=== PATIENT | female | born 1940 | race Caucasian/White ===

== ENCOUNTER → 2021-10-24 13:26 | Outpatient (CLI) | payer MEDICARE, SELFPAY ==
--- NOTE | 2021-10-24 13:38 | MR_ITS ---
FINAL REPORT CLINICAL HISTORY: neck pain, brisk reflexes. MEMORY LOSS XYEARS. HISTORY STROKE IN 2009. DIZZINESS. NECK PAIN WORSE ON RIGHT SIDE. PATIENT HAD A HARD TIME STAYING STILL. SENT OVER BEST IMAGES. FINDINGS: Multiplanar MR imaging of the cervical spine was performed without contrast. On the sagittal T2-weighted images, disc degeneration is seen throughout. There is no evidence of fracture. There is mild anterolisthesis of C3 on C4 and mild retrolisthesis of C5 on C6. There is mild kyphosis centered at C5. The cervical spinal cord has an unremarkable appearance without evidence of mass, edema or syrinx. No significant canal stenosis is identified. The cervicomedullary junction is normal. C2-3: There is a small central disc protrusion. C3-4: There is a small central disc protrusion. Bilateral uncovertebral osteophytes are present. There is moderate right neural foraminal narrowing. C4-5: A disc osteophyte complex is present. There is moderate right neural foraminal narrowing. C5-6: A disc osteophyte complex is present. There is severe bilateral neural foraminal narrowing. C6-7: A disc osteophyte complex is present. There is moderate right and mild left neural foraminal narrowing. C7-T1: An annular bulge is present. IMPRESSION: Multilevel degenerative disc disease and spondylosis with areas of neural foraminal narrowing which is worse at C5-6. Central disc protrusion at C2-3 and C3-4 levels. Malalignment as described above. Reviewed, Interpreted and Dictated by Harsh Fan III, MD Transcribed by Esthela Duong Authenticated and [facility]
--- NOTE | 2021-10-24 13:38 | MR_ITS ---
FINAL REPORT CLINICAL HISTORY: memory loss, syncope, history of CVA. MEMORY LOSS XYEARS. HISTORY STROKE IN 2009. DIZZINESS. NECK PAIN WORSE ON RIGHT SIDE. FINDINGS: Multiplanar MR imaging of the brain was performed without contrast. There is age-appropriate atrophy. There are scattered foci of increased T2 signal in the cerebral white matter that have a nonspecific appearance but likely represent severe chronic ischemic/gliotic changes. There is a chronic lacunar infarct in the left basal ganglia. There is no evidence of intracranial hemorrhage or mass. No abnormal ventricular dilatation is identified. No abnormal extra-axial fluid collection is seen. No abnormality is seen on the diffusion weighted images. The posterior fossa and brainstem are unremarkable. Normal major vessel vascular flow voids are seen. IMPRESSION: Age-appropriate atrophy and severe chronic ischemic/gliotic changes. No acute intracranial abnormality. Reviewed, Interpreted and Dictated by Harsh Fan III, MD Transcribed by Noreen Lua Authenticated and [facility]
--- NOTE | 2021-10-24 15:45 | XR_ITS ---
FINAL REPORT CLINICAL HISTORY: neck pain, brisk reflexes FINDINGS: CERVICAL SPINE Seven views were obtained including flexion extension. There is no acute fracture. There is mild anterolisthesis of C3 on C4. There is mild retrolisthesis of C5 on C6. There is moderate severe degenerative change. There is no abnormal movement with flexion and extension. There is moderate right C5-6 and mild left C4-5 and C5-6 neural foraminal narrowing. Note is made of vascular calcification. IMPRESSION: Degenerative changes with areas of neural foraminal narrowing. Reviewed, Interpreted and Dictated by Harsh Fan III, MD Transcribed by Noreen Lua Authenticated and [facility]
== END ==
PROVIDERS: PCP Nurse Practitioner Family; Visit Provider Nurse Practitioner Family
DX: M54.2 Cervicalgia (principal); R29.2 Abnormal reflex; R41.3 Other amnesia; R41.844 Frontal lobe and executive function deficit; R55 Syncope and collapse; Z86.73 Personal history of transient ischemic attack (TIA), and cerebral infarction without residual deficits
CPT/HCPCS: 70551; 72052; 72141; 76376; 94762

== ENCOUNTER 2022-05-29 14:23 | Emergency (ER) | payer MEDICARE, SELFPAY ==
[2022-05-29] VITALS (8 sets, daily range): BP systolic 151–180; BP diastolic 77–112; PULSE 74–120; RESP 17–22; TEMP 36.6–36.7; O2SAT 94–98; BMI 25.9
--- NOTE | 2022-05-29 14:33 | CT_ITS ---
FINAL REPORT TECHNIQUE: Axial images were performed through the brain.This study was performed with techniques to keep radiation doses as low as reasonably achievable, (ALARA). Individualized dose reduction techniques using automated exposure control or adjustment of mA and/or kV according to the patient''s size were employed. CLINICAL HISTORY: [facility] stroke protocol FINDINGS: There are multiple chronic lacunar infarcts in the basal ganglia. There is an old left occipital and frontal parietal cortical infarct. There are advanced chronic microvascular changes and moderate generalized atrophy. The ventricles are normal in size for the degree of atrophy. There is no extra-axial fluid or midline shift. There is no evidence of acute hemorrhage or mass. IMPRESSION: No hemorrhage or obvious acute abnormality, however given the extensive chronic changes, MR follow-up is recommended. Reviewed, Interpreted and Dictated by Alfonso Sherwood MD Transcribed by Ana María Garcia Authenticated and [facility]
--- NOTE | 2022-05-29 14:39 | CT_ITS ---
FINAL REPORT TECHNIQUE: Multiple axial CT angiography images were performed from the foramen magnum to the vertex before and during IV contrast administration. This study was performed with techniques to keep radiation doses as low as reasonably achievable (ALARA). Individualized dose reduction techniques using automated exposure control or adjustment of mA and/or kV according to the patient's size were employed. CLINICAL HISTORY: stroke COMPARISON: none FINDINGS: CTA HEAD Thin section axial CT with contrast with multiplanar reconstruction The distal ICAs, central MCAs, and central ACAs are widely patent. The basilar artery is widely patent. There is occlusion of the proximal left [employer] which correlates with chronic left occipital infarct. 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 The distal right vertebral artery is widely patent. IMPRESSION: Anterior circulation is intact. 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 Reviewed, Interpreted and Dictated by Alfonso Sherwood MD Transcribed by Noreen Lau Authenticated and [facility]
--- NOTE | 2022-05-29 14:39 | CT_ITS ---
FINAL REPORT TECHNIQUE: Thin section axial images were obtained through the neck after contrast administration per CT angiogram protocol. Multiplanar reconstruction images were obtained from the axial data. Exam was performed using dose reduction technique. CLINICAL HISTORY: stroke COMPARISON: none FINDINGS: CTA NECK Thin section axial CT with contrast with multiplanar reconstruction NASCET criteria and technique was utilized during interpretation. Aortic arch: Arch shows no significant narrowing. Great vessel origins are widely patent . Right carotid: There is 50% proximal right ICA stenosis. Left carotid: There is mild plaque disease without measurable stenosis. Vertebrals: Right vertebral artery is dominant. Proximal left vertebral artery is patent although occluded distally. IMPRESSION: 50% stenosis proximal right ICA. Reviewed, Interpreted and Dictated by Alfonso Sherwood MD Transcribed by Noreen Lua Authenticated and [facility]
--- NOTE | 2022-05-29 14:46 | HMH.EDGENADL ---
Discharge Plan Disposition Patient Disposition: Xfer Other Chief Complaint: Neuro Symptoms/Deficit Prescriptions Prescriptions: No Action amlodipine 10 mg tablet 10 mg PO DAILY levothyroxine 50 mcg tablet 50 mcg PO DAILY donepezil 10 mg tablet 10 mg PO DAILY omeprazole 20 mg capsule,delayed release(DR/EC) 20 mg PO DAILY pravastatin 20 mg tablet 20 mg PO DAILY enalapril maleate 10 mg tablet 10 mg PO DAILY aspirin [Adult Aspirin Regimen] 81 mg tablet,delayed release (DR/EC) 81 mg PO DAILY calcium carbonate [Calcium 600] 600 mg calcium (1,500 mg) tablet 600 mg PO DAILY vitamin E (dl, acetate) 180 mg (400 unit) capsule 180 mg PO DAILY Referrals Follow up/Referrals: Daksha Guerin APRN [Primary Care Provider] - See instructions Clinical Impressions Clinical Impression: Transient cerebral ischemia Discharge ED Provider: Guevara Angel General Adult HPI General Chief complaint: Neuro Symptoms/Deficit Stated complaint: sent by Apoorva Time Seen by Provider: 05/29/22 14:47 Source of Information: Spouse and Relative History of Present Illness HPI narrative: 81-year-old female history of high blood pressure CVA hypothyroid presents with altered mental status. She has history of dementia. She apparently was at class [facility] the [facility] and then had altered mental status where she kept repeating I do not know, I do not know. When her daughter saw her at around 2:30 PM she had weakness in her right hand and a left facial droop however per her daughter this has resolved. Her symptoms started around 11:30 AM. Confusion is intermittant and resolving. She is on aspirin only for anticoagulation. No recent strokes or head bleeds. Related Data Home Medications Medication Instructions Recorded Confirmed amlodipine 10 mg tablet 10 mg PO DAILY 10/07/21 11/28/21 aspirin 81 mg tablet,delayed 81 mg PO DAILY 10/07/21 11/28/21 release (Adult Aspirin Regimen) calcium carbonate 600 mg calcium 600 mg PO DAILY 10/07/21 11/28/21 (1,500 mg) tablet (Calcium) donepezil 10 mg tablet 10 mg PO DAILY 10/07/21 11/28/21 enalapril maleate 10 mg tablet 10 mg PO DAILY 10/07/21 11/28/21 levothyroxine 50 mcg tablet 50 mcg PO DAILY 10/07/21 11/28/21 omeprazole 20 mg capsule,delayed 20 mg PO DAILY 10/07/21 11/28/21 release pravastatin 20 mg tablet 20 mg PO DAILY 10/07/21 11/28/21 vitamin E (dl, acetate) 180 mg 180 mg PO DAILY 10/07/21 11/28/21 (400 unit) capsule Allergies Allergy/AdvReac Type Severity Reaction Status Date / Time No Known Allergies Allergy Verified 11/28/21 09:25 [facility] Disclaimer: The information contained in this section may have been updated after the patient was seen, as this information can be updated by other users. Social History Smoking Status: Unknown if ever smoked alcohol intake: never current occupational status: disabled Travel in the last 8 weeks: None ROS Obtained: Yes All systems reviewed & no additional complaints except as documented Constitutional Constitutional: Denies fatigue, Denies fever(s) and Denies headache(s) Eyes Eyes: Denies irritation and Denies itchy eyes ENT Ears, Nose, Mouth, and Throat: Denies headache(s) Cardiovascular Cardiovascular: Denies dyspnea Respiratory Respiratory: Denies cough and Denies dyspnea Gastrointestinal Gastrointestingal: Denies melena Genitourinary Female Genitourinary: Denies hematuria Musculoskeletal Musculoskeletal: Denies joint swelling Integumentary/Breasts Skin/Breast: Denies pruritus and Denies rash Neurologic Neurologic: Denies headache(s) Endocrine Endocrine: Denies fatigue Allergic/Immunologic Allergic/Immunologic: Denies itchy eyes Physical Exam General General appearance: alert and in no apparent distress Eye Eye exam: Present PERRL and EOMI ENT ENT exam: Present normal exam and normal oropharynx Neck Neck exam: Present normal inspection Chest Ch
[2022-05-29 14:52] LABS: Chloride 103 mmol/L (98-107); Potassium 3.9 mmoL/L (3.5-5.1); Sodium 137 mmol/L (136-145)
[2022-05-29 14:55] LABS: Alanine Aminotransferase 21 U/L (12-78); Albumin Level 4.8 g/dl (3.5-5.0); Albumin/Globulin Ratio 1.7 (1.1-1.8); Alkaline Phosphatase 57 U/L (38-126); Anion Gap 13.9 mEq/L (5-15); Aspartate Amino Transferase 30 U/L (14-36); Bilirubin,Total 0.8 mg/dl (0.2-1.3); Blood Urea Nitrogen 15 mg/dl (7-17); Calcium 9.7 mg/dl (8.4-10.2); Carbon Dioxide 24 mmol/L (22.0-30.0); Creatinine Clearance Estimated 50 mL/min (50-200); Estimated Glomerular Filt Rate 60 ml/min (>60); GFR (African American) 73 ML/MIN (>60); Globulin 2.9 g/dL (1.3-3.2); Glucose 137 mg/dl (74-100); Magnesium 2.1 mg/dl (1.6-2.3); Total Protein,Serum 7.7 g/dl (6.3-8.2)
[2022-05-29 14:58] LABS: Basophils # 0.1 K/mm3 (0-0.2); Eosinophils # 0.1 K/mm3 (0.0-0.4); Eosinophils % 1.5 % (0.1-12.0); Hematocrit 46.2 % (37.0-47.0); Hemoglobin 15.5 g/dL (12.2-16.2); Lymphocytes # 2.2 K/mm3 (0.7-4.5); Mean Corpuscular HGB Conc 33.6 g/dL (31.8-35.4); Mean Corpuscular Hemoglobin 30.9 pg (27.0-31.2); Mean Corpuscular Volume 91.9 fl (81-99); Mean Platelet Volume 8.9 fl (7.4-10.4); Monocytes # 0.5 K/mm3 (0.1-1.0); Monocytes % 5.9 % (1.7-9.3); Neutrophils # 5.1 K/mm3 (1.8-7.8); Neutrophils % 63.7 % (37.0-80.0); Platelet Count 312 K/mm3 (142-424); Red Blood Count 5.02 M/mm3 (4.20-5.40); Red Cell Distribution Width 14.1 % (11.5-17.5)
[2022-05-29 15:21] LABS: Troponin I < 0.01 ng/ml (0.00-0.034)
--- NOTE | 2022-05-29 15:22 | PC.NURSE ---
pt more alert and reactive to staff when talking to her. Pt able to follow some commands when doing in/out cath. attempted to do NIH assessment again on pt at this time, pt no cooperative with directions. ER aware
[2022-05-29 15:25] LABS: Microscopic, Urine URINE MICROSCOPIC (MICROSCOPIC)
[2022-05-29 15:26] LABS: Thyroid Stimulating Hormone 1.78 uIU/mL (0.465-4.68)
[2022-05-29 15:26] LABS: Appearance,Urine CLEAR (Clear); Bilirubin,Urine Negative (Negative); Blood, Urine TRACE-I (Negative); Color,Urine YELLOW (Yellow); Glucose,Urine (UA) Negative (Negative); Ketones,Urine 1+ (Negative); Leukocyte Esterase,Urine Negative (Negative); Nitrate,Urine Negative (Negative); Protein,Urine Negative (Negative); Urobilinogen,Urine 0.2 EU/dl (0.2)
--- NOTE | 2022-05-29 15:28 | PC.NURSE ---
LEE GONSALVES at reassessing pt.
[2022-05-29 15:38] LABS: RBC,Urine Occasional #/hpf (0-3)
--- NOTE | 2022-05-29 15:49 | PC.NURSE ---
helped pt restroom at this time, pt tolerated ambulation well with full assist x1 staff
--- NOTE | 2022-05-29 16:14 | ECG_ITS ---
APPROVED REPORT Exam: Resting ECG HR:115 bpm ECG Measurements Heart Rate 115 AXES QRSd 110 QRS 58 QT 281 T -60 QTc 349 Conclusion ATRIAL FIBRILLATION WITH RAPID VENTRICULAR RESPONSE NONSPECIFIC ST & T-WAVE ABNORMALITY ABNORMAL ECG UNCONFIRMED REPORT Electronically signed by : Jeff Laurent MD 05/30/2022 08:21:52
--- NOTE | 2022-05-29 16:29 | PC.NURSE ---
crew leader/control room operator paging dr. shabazz
--- NOTE | 2022-05-29 16:31 | PC.NURSE ---
Dr Angel speaking with Dr Toledo
--- NOTE | 2022-05-29 16:46 | PC.NURSE ---
pt up to bathroom
--- NOTE | 2022-05-29 17:00 | PC.NURSE ---
Called stroke team at awaiting call back
--- NOTE | 2022-05-29 17:47 | PC.NURSE ---
Dr Angel speaking with [place] stroke team
--- NOTE | 2022-05-29 18:04 | PC.NURSE ---
Dr Angel spoke with Dr Irby at [facility] , pt accepted to their ER.
--- NOTE | 2022-05-29 18:15 | ECG_ITS ---
APPROVED REPORT Exam: Resting ECG HR:78 bpm ECG Measurements Heart Rate 78 AXES WY 178 P 62 QRSd 110 QRS 5 QT 416 T -20 QTc 449 Conclusion SINUS RHYTHM LEFT ATRIAL ENLARGEMENT Late R wave progression ABNORMAL ECG UNCONFIRMED REPORT Electronically signed by : Jeff Laurent MD 05/30/2022 08:21:28
--- NOTE | 2022-05-29 18:44 | PC.NURSE ---
waiting communication skills instructor back from [facility] to give report
[2022-05-29 18:51] LABS: Troponin I < 0.01 ng/ml (0.00-0.034)
--- NOTE | 2022-05-29 19:13 | PC.NURSE ---
report called to jesse mcclelland at [facility]
--- NOTE | 2022-05-29 19:16 | PC.NURSE ---
shift change report given to cayetanorn
--- NOTE | 2022-05-29 19:25 | PC.NURSE ---
waiting on transport to arrive for pickup. RASHEL Paez spoke with kim Hammer-p re: arrangements for transport to [facility].
--- NOTE | 2022-05-29 20:16 | PC.NURSE ---
[facility] AT BEDSIDE FOR TRANSFER
[2022-05-29 21:34] LABS: Coronavirus 19, PCR Not Detected (NotDetected); Influenza A, PCR Not Detected (NotDetected); Influenza B, PCR Not Detected (NotDetected)
== END 2022-05-29 20:38 | disposition other institution (70) ==
PROVIDERS: Emergency Provider Emergency Medicine; PCP Nurse Practitioner Family
DX: G45.9 Transient cerebral ischemic attack, unspecified (principal); I10 Essential (primary) hypertension; Z86.73 Personal history of transient ischemic attack (TIA), and cerebral infarction without residual deficits; E03.9 Hypothyroidism, unspecified
CPT/HCPCS: 70450; 70496; 70498; 80053; 81001; 83735; 84443; 84484; 85025; 93005; 99285; C9803; Q9967; U0003; U0005